=== PATIENT | male | born 1985 | race Two or more races ===

== ENCOUNTER 2017-03-14 17:40 | Emergency (ER) | payer SELFPAY ==
--- NOTE | 2017-03-14 19:09 | ER Document Report ---
HPI - HPI Pain Level: 2 Notes: Patient is a 31-year-old male sent to the ED complaining of left lateral eye redness 1 day. Patient denies any sharp pain. Patient states that it feels irritated, with occasional clear discharge. He has not had anything for symptoms. Patient states that he has not had any changes in his vision. Patient does note nasal congestion discharge for the last several days. Patient denies feeling anything enter his eye. He still eating and drink without any problems. Patient states he has no problems with range of motion. Denies any headache, fever, changes in vision, ear pain, dizziness, sinus pain, sore throat, dysphagia, cough, shortness of breath, dyspnea, chest pain, palpitations, abdominal pain, nausea/vomiting/diarrhea, dysuria, urinary discharge, joint pains, or rash. - ROS Notes: REVIEW OF SYSTEMS: CONSTITUTIONAL : Denies fever, chills, or sweats. Denies recent illness. EENT: see hpi CARDIOVASCULAR: Denies chest pain. Denies palpitations or racing or irregular heart beat. Denies ankle edema. RESPIRATORY: Denies cough, cold, or chest congestion. Denies shortness of breath, difficulty breathing, or wheezing. GASTROINTESTINAL: Denies abdominal pain or distention. Denies nausea, vomiting , or diarrhea. Denies blood in vomitus, stools, or per rectum. Denies black, tarry stools. Denies constipation. GENITOURINARY: Denies difficulty urinating, painful urination, burning, frequency, blood in urine, or discharge. MUSCULOSKELETAL: Denies back or neck pain or stiffness. Denies joint pain or swelling. SKIN: Denies rash, lesions or sores. ALL OTHER SYSTEMS REVIEWED AND NEGATIVE. Dictation was performed using [employer] voice recognition software - DERM Skin Color: Normal Past Medical History - Social History Smoking Status: Current Every Day Smoker Chew tobacco use (# tins/day): No Frequency of alcohol use: None Drug Abuse: None Family History: Reviewed & Not Pertinent Patient has suicidal ideation: No Patient has homicidal ideation: No Renal/ Medical History: Denies: Hx Peritoneal Dialysis Vertical Provider Document - INFECTION CONTROL TRAVEL OUTSIDE OF THE [place] IN LAST 30 DAYS: No - HEENT Notes: PHYSICAL EXAMINATION: GENERAL: Well-appearing, well-nourished and in no acute distress. HEAD: Atraumatic, normocephalic. EYES: Pupils equal round and reactive to light, extraocular movements intact, sclera anicteric, + injection to left lateral conjunctiva without discharge. No wincing or inability to perform ROM. Non-tender. ENT: EAC clear b/l. TM's intact b/l without erythema, fluid, or perforation. Nares patent and without discharge. oropharynx clear without exudates. No tonsilar hypertrophy or erythema. Moist mucous membranes. No sinus tenderness. NECK: Normal range of motion, supple without lymphadenopathy. No rigidity. LUNGS: Breath sounds clear to auscultation bilaterally and equal. No wheezes rales or rhonchi. HEART: Regular rate and rhythm without murmurs, rubs, gallops. PSYCH: Normal mood, normal affect. SKIN: Warm, Dry, normal turgor, no rashes or lesions noted. Eye exam: Verbal consent obtained eye was cleansed and irrigated with saline eye was then numbed with tetracaine Lid everted and wiped Fluorescent stain utilized with Rey lamp No abrasion, ulceration, or trauma noted Patient tolerated procedure well without complications - RESPIRATORY O2 Sat by Pulse Oximetry: 100 Course - Re-evaluation Re-evalutation: 03/14/17 21:39 Patient is an afebrile, well-hydrated, 31-year-old male who presents to the ED with left eye conjunctivitis, suspect viral infection. Vitals are stable. Eye exam with fluorescein and Wood's lamp were negative. Patient tolerated procedure well. I will send him home with ketorolac drops that he may use on an as needed basis. Conservative measures otherwise for symptoms. Recheck with PCM in 2-3 days. Consider consult with ophthalmology. Return to the ED with any worsening/concerning symptoms otherwise. Patient in agreement. Low suspicion for any retained corneal/lid foreign body, orbital cellulitis, abscess , acute glaucoma, globe injury, retinal detachment, or meningitis based on work up today. - Vital Signs Vital signs: Temp Pulse Resp BP Pulse Ox 98.6 F 72 16 135/85 H 100 03/14/17 17:46 03/14/17 17:46 03/14/17 17:46 03/14/17 17:46 03/14/17 17:46 Discharge - Discharge Clinical Impression: Acute conjunctivitis of left eye Qualifiers: Acute conjunctivitis type: unspecified Qualified Code(s): H10.32 - Unspecified acute conjunctivitis, left eye Condition: Stable Disposition: HOME, SELF-CARE Additional Instructions: Keep eye clean Wash hands regularly Use [id number] cold medication as needed use drops as directed Recheck with your PCM in 2-3 days Consider consult with ophthalmology Return to the ED with any worsening symptoms and/or development of fever, changes in vision, eye pain/purulent discharge, headache, chest pain, palpitations, syncope, shortness of breath, trouble breathing, abdominal pain, n /v/d, or other worsening symptoms that are concerning to you. Prescriptions: Ketorolac Tromethamine 0.45% [Acuvail 0.45% Oph Soln 0.4 ml/Dropperette] 1 drop OS QID PRN #1 bottle PRN Reason: Referrals: OPHTHAMOLOGY [Provider Group] - Follow up as needed
[2017-03-14] MEDS ORDERED: TETRACAINE HCL 0.5% OPH SOLN 2 ML ONE (19:30)
[2017-03-14 19:48] VITALS: BP 124/75
== END 2017-03-14 19:49 | disposition home or self-care (01) ==
LOC: ER 17:40
DX: H10.32 Unspecified acute conjunctivitis, left eye (principal); F17.200 Nicotine dependence, unspecified, uncomplicated
CPT/HCPCS: 99282